=== PATIENT | female | born 1965 | race Caucasian/White ===

== ENCOUNTER 2018-11-03 12:59 | Emergency (ER) | payer SELFPAY ==
[2018-11-03 13:00] VITALS: BP 163/84; PULSE 87; RESP 18; TEMP 36.1; O2SAT 98; BMI 37.7
[2018-11-03 13:13] VITALS: BP 160/79; PULSE 80; RESP 17; O2SAT 97; O2SAT 98
--- NOTE | 2018-11-03 13:15 | RAD_ITS ---
STUDY: X-RAY CHEST REASON FOR EXAM: Female, 53 years old. Chest pressure. TECHNIQUE: PA and lateral views of the chest. COMPARISON: None. FINDINGS: EKG electrodes are seen. A stent is seen at the origin of the left subclavian artery. The lungs are clear and expanded. Scattered calcified granulomas. There is no demonstrated pleural abnormality. Normal size heart. Normal mediastinum and nancy. Normal visualized pulmonary arteries. Normal visualized aortic arch and descending thoracic aorta. There are mild degenerative changes of the visualized thoracic spine. Normal visualized ribs, clavicles, and shoulders. There is no demonstrated abnormality of the visualized soft tissue structures of the upper abdomen. RAD/Chest PA and Lateral IMPRESSION: No acute abnormality is seen. Electronically Signed: Alistair Felder MD at 14:20 EST Tel [phone], Service support ,
--- NOTE | 2018-11-03 13:18 | ED.DCSUM_ITS ---
- ER Visit Summary Date of Service: 11/03/18 Chief Complaint: Coughed up blood History of Present Illness: The patient is a 53 F past medical history of coronary artery disease with multiple cardiac stents and also a left subclavian stent. Also history of COPD, CAD and nkd-[id number]-[id number] diabetes. Patient states that she just took a 24-hour bus ride from [place] to get to [place] to visit family. She is on both Plavix and baby aspirin for her stents. States she was feeling fine. Coughed and coughed up about a quarter of a cup of gross blood. She denies any chest pain. She denies any shortness of breath. She denies any fever. States this is never happened before. No new leg pain or swelling. She has some chronic mild swelling in her right ankle area from a prior injury. She is never had a DVT or PE. Physical Examination: Well-appearing middle-age female no acute distress. Vital signs are stable. Heart rate 87. Pulse ox 90% on room air no signs of hypoxia. She is in no distress. HEENT exam unremarkable. Neck nontender. No lymphadenopathy. Lungs clear to auscultation bilaterally. Heart regular rate and rhythm no murmur rate about 85. Abdomen soft, nontender, nondistended normal bowel sounds no peritoneal signs. She is moving all 4 extremities. Calves are nontender without edema or cords. Neurologically she is awake and alert with no focal motor deficits. Test Results: Chest x-ray normal 2 views. Normal cardiac silhouette mediastinum. Read both by myself and radiologist. EKG sinus rhythm rate of 76 no abnormality. CBC shows white count 8. Hemoglobin 14. Chemistries unremarkable creatinine 0.7 gap of 10. D-dimer negative less than 0.27. Emergency Department Course and Treatment: Patient recent long travel and hemoptysis. Repeat exam patient is doing well. She is resting comfortably. Currently she is pain-free and without any shortness of breath. Her pulse ox is 97% on room air and her heart rate 69 sitting in bed. Treatment Plan: Given the patient has never had a DVT or PE. Has no chest pain or shortness of breath and a negative d-dimer I do not think she needs further evaluation. She will continue her current medications. Return if she has more bleeding or other symptoms. Follow-up with her doctor in her home state of [place]. Disposition: Discharge Impression: Acute hemoptysis of uncertain etiology This note was generated with [employer] dictation software. It may contain incorrect words, spelling, and punctuation that were not noted in review of the chart prior to signing ED Disposition - Plan for ED Patient: Chief Complaint: Cough
[2018-11-03 13:36] LABS: Absolute Lymphocyte Count 2.91 X10^3/ul (0.83-4.51); Basophil# 0.03 X10^3/uL; Basophil% 0.3 % (0-1); Eosinophil# 0.07 X10^3/uL; Eosinophils% 0.8 % (0-5); Hematocrit 42.1 % (37-47); Hemoglobin 14.1 g/dl (12.0-15.0); Lymphocyte # 2.91 X10^3/ul (4.0); Lymphocyte % 33.8 % (19-41); Mean Corp Hgb Conc 33.5 g/gl (32-36); Mean Corpuscular Hgb 30.9 pg (27.0-32.0); Mean Corpuscular Volume 92.1 fL (81-99); Mean Platelet Vol. 9.6 fl (6.2-12.0); Monocyte# 0.57 X10^3/uL; Monocyte% 6.6 % (0-10); Neutrophil # 5.03 X10^3/uL (2.7-7.7); Neutrophil % 58.4 % (47-70); POSITIVE COUNT NO; POSITIVE DIFFERENTIAL NO; POSITIVE MORPHOLOGY NO; Platelet Count 226 K/mm3 (150-450); RBC Distribution Width CV 12.5 % (11.6-14.6); Red Blood Count 4.57 M/mm3 (4.2-5.4); White Blood Count 8.6 K/mm3 (4.4-11.0)
--- NOTE | 2018-11-03 13:40 | NURSING ---
NO OLD EKGS
--- NOTE | 2018-11-03 13:42 | EKG12_ITS ---
Test Reason : CHEST PAIN Blood Pressure : / mmHG Vent. Rate : 076 BPM Atrial Rate : 076 BPM P-R Int : 132 ms QRS Dur : 104 ms QT Int : 416 ms P-R-T Axes : 037 089 056 degrees QTc Int : 468 ms Normal sinus rhythm Normal ECG Confirmed by ELAN ALVES ([id number]), restaurant expeditor ROMIE MENDIETA ([id number]) on 11/08/2018 2:41:57 PM Referred By: DINA Confirmed By:ELAN ALVES
[2018-11-03 13:49] LABS: D-Dimer Quantitative (DVT/PE) < 0.27 FEU/ug/m (0.27-0.49)
[2018-11-03 13:53] VITALS: BP 138/82; PULSE 86; RESP 18; O2SAT 95
[2018-11-03 13:54] LABS: Anion Gap 10 (5-15); BUN 13 mg/dL (7-18); BUN/Creat Ratio 17.3 RATIO (10-20); Calcium,Total 8.9 mg/dL (8.5-10.1); Chloride 107 mmol/L (98-107); Creatinine, Serum 0.75 mg/dL (0.55-1.02); EST Glomerular Filtration Rate 85 mL/min (>60); Est Glom Filt Rate - Afr Amer 103 mL/min (>60); Estimated Creatinine Clearance 70.93 ml/min; Glucose 100 mg/dL (74-106); Potassium 3.7 mmol/L (3.5-5.1); Sodium Level 138 mmol/L (136-145)
[2018-11-03 14:00] VITALS: BP 138/59; PULSE 72; O2SAT 94
[2018-11-03 15:03] VITALS: BP 137/71; PULSE 74; RESP 16; O2SAT 96
--- NOTE | 2018-11-03 15:03 | DCINST.ED_ITS ---
ED Disposition - Plan for ED Patient: Disposition: Home or Assisted Living Chief Complaint: Cough Instructions: ED Hemoptysis Referrals: [facility] Doctor,Out of [Primary Care Provider] - As soon as possible Additional Instructions: Cough felt blood we do not have a specific cause. When you return to your home state follow-up with your doctor for further evaluation. Continue your current medications. Return if worse bleeding or you develop chest pain or feeling worse.
== END 2018-11-03 15:57 | disposition home or self-care (01) ==
PROVIDERS: Emergency Provider Emergency Medicine
DX: R04.2 Hemoptysis (principal); J44.9 Chronic obstructive pulmonary disease, unspecified; I25.10 Atherosclerotic heart disease of native coronary artery without angina pectoris; E11.9 Type 2 diabetes mellitus without complications; M25.471 Effusion, right ankle; I25.2 Old myocardial infarction; Z79.02 Long term (current) use of antithrombotics/antiplatelets; Z79.82 Long term (current) use of aspirin; Z79.899 Other long term (current) drug therapy; Z79.84 Long term (current) use of oral hypoglycemic drugs; Z95.5 Presence of coronary angioplasty implant and graft
CPT/HCPCS: 71046; 80048; 85025; 85379; 93005; 99283; A4216